=== PATIENT | male | born 1985 | race Caucasian/White ===

== ENCOUNTER 2020-08-17 10:23 | Emergency (ER) | payer OTHER ==
[~2020-08-17] VITALS: Ht 185.4 cm; Wt 83.9 kg
[2020-08-17] MEDS ORDERED: MODAFINIL200 MG PO (10:28)
[2020-08-17 12:23] VITALS: BP 147/87
== END 2020-08-17 12:24 | disposition home or self-care (01) ==
LOC: ER 10:23
DX: S06.0X0A Concussion without loss of consciousness, initial encounter (principal); Z88.2 Allergy status to sulfonamides; Z79.899 Other long term (current) drug therapy; V43.52XA Car driver injured in collision with other type car in traffic accident, initial encounter; Y93.89 Activity, other specified; Y92.89 Other specified places as the place of occurrence of the external cause; Y99.8 Other external cause status